=== PATIENT | male | born 1980 | race Caucasian/White ===

== ENCOUNTER 2017-02-11 17:36 | Emergency (ER) | payer OTHER ==
[2017-02-11 17:41] VITALS: BP 159/97; PULSE 110; TEMP 98.2; BMI 38.2
[2017-02-11] MEDS ORDERED: KETOROLAC TROMETHAMINE 60 MG/2 ML VIAL IM ONE (18:05)
[2017-02-11] MEDS ORDERED: KETOROLAC TROMETHAMINE 60 MG/2 ML VIAL ONE (18:11)
--- NOTE | 2017-02-11 18:17 | PDOC ---
History of Present Illness - General Chief Complaint: Headache Stated Complaint: HEADACHE Time Seen by Provider: 02/11/17 17:50 History Source: Patient Exam Limitations: No Limitations - History of Present Illness Initial Comments: 02/11/17 18:17 36-year-old male presents to the ED with a waxing and waning right temporal pressure that he states feels a sharp pressure relieved with Aleve but not with Motrin. Patient denies visual changes, dizziness, neck stiffness, fever, ear pain, dental pain, nausea, or recent head injury. Patient denies history of headache or medical history but states has not seen a doctor in a few years. Timing/Duration: reports: other (3 days) Associated Symptoms: reports: denies symptoms Past History - Past Medical History Allergies/Adverse Reactions: Allergies Allergy/AdvReac Type Severity Reaction Status Date / Time No Known Allergies Allergy Verified 02/11/17 17:37 Home Medications: Ambulatory Orders NK [No Known Home Medication] 02/11/17 Other medical history: denies. - Psycho/Social/Smoking Cessation Hx Suicidal Ideation: No Smoking History: Current every day smoker Have you smoked in the past 12 months: Yes Number of Cigarettes Smoked Daily: 4 Information on smoking cessation initiated: No 'Breaking Loose' booklet given: 02/07/16 Hx Alcohol Use: No Drug/Substance Use Hx: No Substance Use Type: None Patient Lives Alone: No Lives with/in: spouse/SO Review of Systems - Review of Systems Able to Perform ROS?: Yes Constitutional: No: Symptoms Reported HEENTM: No: Symptoms Reported Respiratory: No: Symptoms reported ABD/GI: No: Symptoms Reported Musculoskeletal: No: Symptoms Reported Integumentary: No: Symptoms Reported Neurological: Yes: Headache Hematologic/Lymphatic: No: Symptoms Reported *Physical Exam - Vital Signs Last Vital Signs Temp Pulse Resp BP Pulse Ox 98.2 F 110 H 19 159/97 97 02/11/17 17:38 02/11/17 17:38 02/11/17 17:38 02/11/17 17:38 02/11/17 17:38 - Physical Exam General Appearance: Yes: Nourished, Appropriately Dressed. No: Apparent Distress HEENT: positive: EOMI, HALI, TMs Normal, Pharynx Normal. negative: Pale Conjunctivae Neck: positive: Normal Thyroid, Supple. negative: Tender, Decreased range of motion Respiratory/Chest: positive: Lungs Clear, Normal Breath Sounds. negative: Respiratory Distress, Accessory Muscle Use Cardiovascular: positive: Regular Rhythm, Regular Rate. negative: Murmur Integumentary: positive: Normal Color, Warm. negative: Moist Neurologic: positive: Motor Strength /5 ED Treatment Course - RADIOLOGY Radiology Studies Ordered: Category Date Time Status HEAD CT WITHOUT CONTRAST [CT] Stat CT Scan 02/11/17 18:05 Ordered Medical Decision Making - Medical Decision Making 02/11/17 18:24 Patient with episodic right temporal pressure which she describes a sharp and intermittent without aggravating factors. Patient states took Aleve with good effect but only to have the symptoms return today so decided come to the ER. Patient has no acute findings on exam. Except for mildly elevated blood pressure and borderline tachycardia. Patient ordered for Toradol for pain control and a head CT for initial diagnostics. 02/11/17 19:28 Patient states feeling much better after receiving Toradol. Head CT shows no intra-cranial acute hemorrhage or mass.. No infarct. Patient will be discharged home to follow-up with referred neurologist. *DC/Admit/Observation/Transfer Diagnosis at time of Disposition: Headache Qualifiers: Headache type: unspecified Headache chronicity pattern: acute headache Intractability: intractable Qualified Code(s): R51 - Headache - Discharge Dispostion Disposition: HOME Condition at time of disposition: Improved - Referrals Referrals: Nara Chacon MD [Staff Physician] - - Patient Instructions Printed Discharge Instructions: DI for Headache Additional Instructions: Take Motrin 600 mg for discomfort or you may take 975 of Tylenol with no relief with Motrin. Please follow up with referred neurologist. Return to ED if symptoms worsen.
== END 2017-02-11 19:34 | disposition home or self-care (01) ==
LOC: JERFT 17:36
PROC: 3E0233Z Introduction of Anti-inflammatory into Muscle, Percutaneous Approach (ICD-10-PCS; principal; 2017-02-11)
DX: R51 Headache (principal); F17.210 Nicotine dependence, cigarettes, uncomplicated
CPT/HCPCS: 70450-TC; 99281-25